=== PATIENT | female | born 1980 | race Caucasian/White ===

== ENCOUNTER 2018-07-09 12:22 | Day surgery (SDC) | payer OTHER ==
[2018-07-09] MEDS ORDERED: BUPIVACAINE 0.5%/EPI (SDV) 30 ML INJ (13:25)
[2018-07-09] MEDS ORDERED: BUPIVACAINE 0.25% (MPF) 30 ML INJ (13:25)
[2018-07-09] MEDS ORDERED: FENTAnyl 50 MCG/ML VIAL (13:43)
[2018-07-09] MEDS ORDERED: MIDAZOLAM 1 MG/ML 2 ML INJ (13:43)
[2018-07-09] MEDS ORDERED: CEFAZOLIN 1 GM INJ (13:45)
[2018-07-09] MEDS: CEFAZOLIN 2 GM/50 ML (PMX) 50 ML IVPB (13:45)
[2018-07-09] MEDS: BUPIVACAINE 0.5% (SDV) 30 ML INJ (13:58)
[2018-07-09] MEDS: LIDOCAINE 2% (MDV) 20 ML INJ (13:58)
[2018-07-09] MEDS ORDERED: HYDROmorphONE 1 MG/5 ML IV SYRINGE IV (14:00)
[2018-07-09] MEDS ORDERED: HYDROCODONE/APAP (5/325) TAB PO (14:30)
== END 2018-07-09 15:30 | disposition home or self-care (01) ==
LOC: SDS 12:22
DX: D17.22 Benign lipomatous neoplasm of skin and subcutaneous tissue of left arm (principal)
CPT/HCPCS: 14021; 84703; 88307